=== PATIENT | male | born 1940 | race Caucasian/White ===

== ENCOUNTER 2018-09-02 06:19 | Inpatient (IN) ==
--- NOTE | 2018-08-10 16:10 | PAT Medication Instructions ---
Medication Instructions Date of Service August 10, 2018 Home Medications Caltrate 600 + D 1 tab PO BID aspirin [Aspir-81] 1 tab PO QAM atorvastatin 10 mg PO HS avszo-tk-4-wyl-gnt-sizfcki-ast 1 cap PO QAM metformin 500 mg PO QAM multivitamin 1 tab PO DAILY nitroglycerin [Nitrostat] 1 tab SUBLINGUAL UD PRN hydrochlorothiazide 25 mg PO QAM rosuvastatin 5 mg PO HS STOP taking 2 weeks before surgery (or as soon as possible if surgery is within 2 weeks) neyyt-lb-2-azp-gbq-kzgooha-ast 1 cap PO QAM DO NOT take the morning of surgery Caltrate 600 + D 1 tab PO BID metformin 500 mg PO QAM multivitamin 1 tab PO DAILY hydrochlorothiazide 25 mg PO QAM Take morning of surgery With a small sip of water, OTHERWISE NOTHING TO EAT OR DRINK AFTER MIDNIGHT: aspirin [Aspir-81] 1 tab PO QAM nitroglycerin [Nitrostat] 1 tab SUBLINGUAL UD PRN (if needed) Take evening before surgery Caltrate 600 + D 1 tab PO BID atorvastatin 10 mg PO HS nitroglycerin [Nitrostat] 1 tab SUBLINGUAL UD PRN (if needed) rosuvastatin 5 mg PO HS Other Notes If you have any questions please call us at [phone] or [phone] or [phone] or [phone]
--- NOTE | 2018-08-11 09:23 | Anesthesiology Consultation ---
Date of Service August 11, 2018 Assessment & Plan (1) Encounter for pre-operative examination: CARDIO CLEARANCE (ANNE 08/11): " I did recommend an echocardiogram in anticipation of his surgery just to confirm his LV function is normal. Assuming his LV function is normal and the fact that he could do more than 4 METS easily without any cardiac symptoms before his hip started bothering him, he can proceed with hip surgery at intermediate risk. I believe his risk of cardiac co mp occasions is in the range of 2 to 3%." LV function was NORMAL on echo done 08/13. NOTE SENT TO PCP RE: HYPERKALEMIA. Provider response = " follow up potassium was 4.1, ordered by Dr. Lima [after he discontinued the patient's Losartan], re view by me at medical clearance appointment 08/26/2018. Cleared for surgery." CHECK BSG AM DOS Chart Review Chart Review: Acceptable Risk for Surgery and Patient seen in Pre Admission Testing Consults Requested medical & cardiac Teaching & Discussion Instructed NPO after midnight before surgery, except medications with 15 cc of water. Medication instructions provided according to the PAT guidelines. History Surgery Operation Date: 09/02/18 10:05 Proposed Procedures p Left Total Hip Arthroplasty - Johnson Godoy MD Height/Weight Height: 6 ft 2 in Weight: 103.1 kg Allergies Allergy/AdvReac Type Severity Reaction Status Date / Time No Known Allergies Allergy Unverified 08/06/18 08:37 Medications Home Medications Medication Instructions Recorded Confirmed Last Taken Caltrate 600 + D 1 tab PO BID 11/25/17 08/06/18 08/06/18 aspirin [Aspir-81] 1 tab PO QAM 11/25/17 08/06/18 08/06/18 atorvastatin 10 mg PO HS 11/25/17 08/06/18 08/05/18 nmeix-gs-4-loi-lzi-ojrlufe-ast 1 cap PO QAM 11/25/17 08/06/18 08/06/18 [MegaRed [place]-3 Krill Oil] metformin 500 mg PO QAM 11/25/17 08/06/18 08/06/18 multivitamin 1 tab PO DAILY 11/25/17 08/06/18 12/01/17 nitroglycerin [Nitrostat] 1 tab SUBLINGUAL UD PRN 11/25/17 08/06/18 Unknown hydrochlorothiazide 25 mg PO QAM 08/06/18 08/06/18 08/06/18 rosuvastatin 5 mg PO HS 08/06/18 08/06/18 08/05/18 Past Medical History Medical History CAD (coronary artery disease) S/P CARDIAC CATH WITH ANDREW X 2 TO LAD, 2016. PROMPTED BY + STRESS TEST. Cancer MELANOMA - RT WRIST - REMOVED Diabetes mellitus, type 2 High cholesterol Hypertension Exercise / Class Metabolic Activity II 4-5 Yardwork/Stairs/Walk up hill (Denies CP or SOB with ambulation, and exercises daily.) Past Surgical History Surgical History History of cardiac cath 2 - 2014 /[facility] History of cataract surgery History of colonoscopy History of surgical removal of pilonidal cyst Past Anesthesia History No Hx of Anesthesia Complications and No Family Hx of Anesthesia Complications History of PONV No Hx of PONV and No Hx of Motion Sickness Social History Smoking Status: Never smoker Do You Dip or Chew Tobacco: No Hx Alcohol Use: Yes Alcohol type: hard liquor alcohol intake frequency: a few times a month Hx Substance Use: No substance use type: does not use Review of Systems Pt denies any recent chest pain, shortness of breath, palpitations, cough, fever or URI. Physical Exam Vital Signs BP: 144/76 P: 66bpm SPO2: 95% RA T: 98.4 F R: 12 ENMT Mouth: + dental restorations (few crowns, one implant); no chipped teeth and no loose teeth Thyromental Distance: > or= 3.5 Finger Breadths (4) Mallampati Class: II Neck normal visual inspection; neck extension not limited Respiratory normal respiratory effort Auscultation: lungs clear to auscultation bilaterally Cardiovascular Rate/Rhythm: regular rate and regular rhythm Heart Sounds: no murmur Vessels: no carotid bruit Extremities: no edema Testing Electrocardiogram Date: 08/11/18 Findings: + NSR @ (63) Echocardiogram Date: 08/13/18 EF: 65% Normal LV size and systolic function with no regional wall motion abnormalities. LV septal flattening in systole, consistent with RV pressure overload. No LVH. Grade 2 diastolic dysfunction. Mildly dilated left atrium. Normal RV size and function. Normal right atrium. *based on this echo, sleep study was ordered for further evaluation of possible HUSSAIN. Laboratory Results 08/11/18 09:45 08/11/18 09:45 PT 10.1 Seconds (9.0-12.0) 08/11/18 09:45 INR 1.0 (0.9-1.1) 08/11/18 09:45 APTT 25.9 Seconds (21.0-31.0) 08/11/18 09:45 5.8 % (4.5-5.6) H 08/11/18 09:45 Yellow 08/11/18 09:45 Clear (Clear) 08/11/18 09:45 5.5 (4.5-7.5) 08/11/18 09:45 Ur Specific [place] 1.023 (1.000-1.030) 08/11/18 09:45 Negative (Negative) 08/11/18 09:45 Negative (Negative) 08/11/18 09:45 Negative (Negative) 08/11/18 09:45 Negative (Negative) 08/11/18 09:45 Ur Leukocyte Esterase Negative (Negative) 08/11/18 09:45 Blood Type O Positive 08/11/18 09:45 Antibody Screen NEGATIVE 08/11/18 09:45 08/11/18 09:45 Urine Culture - Final Urine,Clean Catch No growth - less than 1,000 colonies/mL. Due to computer error, some headers from UA and A1C not pulling into table. UA negative for bacteria. A1C = 5.8%
[2018-08-11 10:43] LABS: Basophils # (auto) 0.01 K/uL (0-0.2); Basophils % (auto) 0.2 %; Eosinophils # (auto) 0.08 K/uL (0-0.5); Eosinophils % (auto) 1.4 %; Hematocrit (blood only) 42.1 % (42-52); Immature Granulocytes # (auto) 0.02 K/uL (0.00-0.02); Immature Granulocytes % (auto) 0.4 %; Lymphocytes # (auto) 1.38 K/uL (1.2-3.4); Lymphocytes % (auto) 24.7 %; Mean Corpuscular Hgb Conc 35.6 g/dL (32-36); Mean Corpuscular Volume 92.1 fL (80-100); Mean Platelet Volume 10.8 fL (7.4-10.4); Monocytes # (auto) 0.29 K/uL (0.11-0.59); Monocytes % (auto) 5.2 %; Neutrophils % (auto) 68.1 %; Platelet Count 171 K/uL (130-400); RDW Coefficient of Variation 12.3 % (11.5-14.5); RDW Standard Deviation 41.5 fL (36.4-46.3); Red Blood Count 4.57 M/uL (4.7-6.1); White Blood Count 5.58 K/uL (4.8-10.8)
[2018-08-11 10:48] LABS: Appearance Urine Clear (Clear); Bilirubin Urine Negative (Negative); Blood Urine Negative (Negative); Color Urine Yellow; Glucose Urine UA Negative (Negative); Ketones Urine Negative (Negative); Leukocyte Esterase Urine Negative (Negative); Nitrite Urine Negative (Negative); Protein Urine Negative (Negative); Specific Gravity Urine 1.023 (1.000-1.030); Urobilinogen Urine Negative (Negative); pH Urine 5.5 (4.5-7.5)
[2018-08-11 10:51] LABS: Albumin Level 4.1 gm/dl (3.4-5.0); BUN Creatinine Ratio 32.1 (10-20); Calcium 10.3 mg/dl (8.5-10.1); Creatinine Clr Calc Pharmacy 69.5 ml/min; Est GFR (African American) 71.5; Est GFR (Non-African American) 61.7; Potassium 5.5 mmol/L (3.5-5.1)
[2018-08-11 10:54] LABS: Albumin Globulin Ratio 1.1 (0.9-2); Bilirubin,Total 0.5 mg/dl (0.2-1); Globulin 3.7 gm/dl (2.5-4.0); Total Protein 7.8 gm/dl (6.4-8.2)
[2018-08-11 10:55] LABS: Partial Thromboplastin Time 25.9 Seconds (21.0-31.0); Prothrombin Time 10.1 Seconds (9.0-12.0)
[2018-08-11 11:07] LABS: Estimated Average Glucose 120 mg/dl; Hemoglobin A1C 5.8 % (4.5-5.6)
--- NOTE | 2018-08-11 14:49 | History & Physical Report ---
Date of Service August 11, 2018 Assessment & Plan (1) Unilateral primary osteoarthritis, left hip: DIAGNOSES: Left hip osteoarthritis. PROCEDURE: Left total hip arthroplasty. PLAN: The patient is scheduled to undergo this procedure at the [facility] as an inpatient with Dr. Johnson Godoy on 09/02/2018. Risks and complications of the procedure such as infection, bleeding, pain, scarring, nerve and blood vessel damage, weakness, wound problems, stiffness, incomplete relief of symptoms, hardware failure, hardware loosening, wear, fracture, tendon or ligament injury, dislocation, leg length inequality, blood clots, embolism, heart attack, stroke and were explained to patient by Dr. Swift at his visit today. Informed consent to perform the procedure was obtained. We will also obtain a preoperative medical clearance from the patient's primary care provider, Dr. Kyle Miller as well as his machine packager Dr. Branden Lima. The patient will obtain preoperative testing during today's visit with anesthesia which includes CBC with differential, complete metabolic panel, PT INR, blood type and screen, urinalysis, urine culture, EKG, hemoglobin A1c and a nasal culture for MRSA. The patient was advised that he will be provided with a prescription for a narcotic pain medication for diclofenac sodium to use for pain control after the surgery. He was also educated about the use of Extra Strength Tylenol and increasing his baby aspirin to twice daily after the surgery for DVT prophylaxis. I did provide him with an order for a walker to obtain prior to the procedure. I also instructed him to purchase a hip kit prior to the procedure to have at home. The patient states that he will most likely have some in the home PT with [facility] after the procedure. I provided him with a handicap placard to use for 6 months postoperatively. I ed ucated him about discharge planning, about the lectures digital offered by [facility] in regards to joint replacement. I also advised him that he will need to use antibiotics prophylactically for any dental cleaning or procedures after the surgery. The patient is scheduled for his postoperative followup with myself on September 17 at 1:15 in the afternoon. He states that in regards to physical therapy after the 2-week interval, he will most likely return to [facility] in [place], [place]. The patient and his verbalized understanding of all information provided at today's visit, thanked us for the care he has received and states if they have questions or concerns that should arise prior to the procedure date they will contact the clinic accordingly. History of Present Illness Chief Complaint: CHIEF COMPLAINT: Left hip pain. Primary Care Provider: Kyle Miller MD HISTORY OF PRESENT ILLNESS: This is a 78-year-old male who presents to clinic today with his for his preoperative history and physical. The patient complains of 2-year history of left hip pain that has increased over the past several months. He states that he has been doing directed physical therapy and stretching exercises at [facility]. He states that the hip pain has become so severe that he is unable to use a recumbent bike and feels that it is affecting his activities of daily living. Occasionally, he uses Advil for relief of his pain, but he feels it is ineffective. He states that his gait is slightly antalgic due to the pain in his left hip. PAST SURGICAL HISTORY: Bilateral cataract excision electrodissection and curretage of the left upper back, shave biopsy of skin, cardiac catheterization, laser trabeculoplasty of his left eye, colonoscopy, excision of melanoma from right forearm and right axilla, left eye laser surgery, pilonidal cyst excision, excision of melanoma with sentinel node biopsy. PAST MEDICAL HISTORY: Hypertension, hypercholesterolemia, obesity, rheumatoid arthritis, melanoma, diabetes, basal cell carcinoma, coronary artery disease, glaucoma, tubular adenoma, vitamin D deficiency, actinic keratosis. FAMILY HISTORY: Positive for diabetes insipidus, heart attack, mitral valve disorder and stroke. ALLERGIES: THE PATIENT HAS MEDICATION ALLERGY TO PRESERVATIVES FOUND IN EYEDROPS. CURRENT MEDICATIONS: Aspirin 81 mg tablet daily, Caltrate 600 plus D 1 tab daily, Crestor 5 mg oral tablet 1 tab at bedtime, hydrochlorothiazide 25 mg oral tablet 1 tab daily, metformin 500 mg oral tablet 1 tab daily, nitroglycerin 0.4 mg sublingual tablet 1 tab under tongue every 5 minutes as needed for chest pain up to 3 doses, Ocuvite oral tablet 1 tab daily, omega-3 polyunsaturated fatty acid 500 mg oral capsule 1 cap daily and Refresh eyedrops 1 drop in both eyes twice daily. SOCIAL HISTORY: The patient denies a history of smoking or illicit drug use. States that he consumes 1 alcoholic beverage per month. Allergies Allergy/AdvReac Type Severity Reaction Status Date / Time No Known Allergies Allergy Unverified 08/06/18 08:37 Home Medications Home Medications Medication Instructions Recorded Confirmed Type Caltrate 600 + D 1 tab PO BID 11/25/17 08/06/18 History aspirin [Aspir-81] 1 tab PO QAM 11/25/17 08/06/18 History atorvastatin 10 mg PO HS 11/25/17 08/06/18 History huesh-pf-1-iab-cac-jpitnsr-ast 1 cap PO QAM 11/25/17 08/06/18 History [MegaRed [place]-3 Krill Oil] metformin 500 mg PO QAM 11/25/17 08/06/18 History multivitamin 1 tab PO DAILY 11/25/17 08/06/18 History nitroglycerin [Nitrostat] 1 tab SUBLINGUAL UD PRN 11/25/17 08/06/18 History hydrochlorothiazide 25 mg PO QAM 08/06/18 08/06/18 History rosuvastatin 5 mg PO HS 08/06/18 08/06/18 History Past Med/Surg History Medical History CAD (coronary artery disease) S/P CARDIAC CATH WITH ANDREW X 2 TO LAD, 2015. PROMPTED BY + STRESS TEST. Cancer MELANOMA - RT WRIST - REMOVED Diabetes mellitus, type 2 High cholesterol Hypertension Surgical History History of cardiac cath 2 STENTS - 2014 /[facility] History of cataract surgery History of colonoscopy History of surgical removal of pilonidal cyst Social History Preferred Language: Frisian Communication Ability: Effective Commercial Baker Helper Required: No Beliefs That Will Affect Care: None Current Living Situation: Spouse Other Information That Helps Us Care for You: No Feels Safe at Home: Yes Smoking Status: Never smoker Do You Dip or Chew Tobacco: No Hx Alcohol Use: Yes Alcohol type: hard liquor Hx Substance Use: No Review of Systems All systems reviewed & are unremarkable except as noted in HPI & below Physical Exam Vital Signs (Past 24 Hours): PHYSICAL EXAMINATION: Skin: The patient's skin is normal in appearance. No skin lesions or discharge. Eyes: Pupils are equal and reactive to light and accommodating. Extraocular movements are intact. Throat: Posterior oropharynx clear with absence of edema, erythema or exudate. Cardiovascular exam: The patient has a regular rate and rhythm, no murmurs or gallops appreciated. Lungs: Auscultation of lung avelar reveals clear breath sounds throughout with no wheezing, rales or rhonchi. Abdomen is mildly obese, nondistended, nontender with normoactive bowel sounds. Extremities: Left hip: The patient is able to flex to 100 degrees. Flexion beyond this point exacerbates pain in the left hip. External rotation is limited to 35 degrees, internal rotation to 5 degrees. Impingement and scour tests are both positive. Stinchfield test is equivocal. The patient has tenderness to palpation over the anterior lateral aspect of the hip. There is crepitation with range of motion. There is some referred pain with active abduction and adduction. GABI test is 4 fists. Otherwise, the patient is neurovascularly intact in left lower extremities. Peripheral pulses are palpable. Capillary refill is less than 2 seconds. Calf is soft and supple, nontender to palpation. Neurological exam: Cranial nerves 2-12 are intact. No motor or sensory deficit. Psychological/general exam: The patient is alert and oriented x3 with proper grooming and hygiene. Results & Data Laboratory Results 08/11/18 08/11/18 08/11/18 Range/Units 09:45 09:45 09:45 WBC (4.8-10.8) K/uL RBC (4.7-6.1) M/uL Hgb (14.0-18.0) g/dL Hct (42-52) % MCV (80-100) fL MCH (25-34) pg MCHC (32-36) g/dL RDW Std Deviation (36.4-46.3) fL RDW Coeff of [place] (11.5-14.5) % Plt Count (130-400) K/uL MPV (7.4-10.4) fL Immature Gran % (Auto) % Neut % (Auto) % Lymph % (Auto) % [place] % (Auto) % Eos % (Auto) % Baso % (Auto) % Immature Gran # (Auto) (0.00-0.02) K/uL Neut # (Auto) (1.4-6.5) K/uL Lymph # (Auto) (1.2-3.4) K/uL [place] # (Auto) (0.11-0.59) K/uL Eos # (Auto) (0-0.5) K/uL Baso # (Auto) (0-0.2) K/uL PT (9.0-12.0) Seconds INR (0.9-1.1) APTT (21.0-31.0) Seconds PTT Ratio Sodium 136 (136-145) mmol/L Potassium 5.5 H (3.5-5.1) mmol/L Chloride 100 (98-107) mmol/L Carbon Dioxide 31 (21-32) mmol/L Anion Gap 5.0 (3-11) BUN 37 H (7-18) mg/dl Creatinine 1.14 (0.6-1.4) mg/dl Est Cr Clr Drug Dosing 69.5 ml/min Est GFR ( Amer) 71.5 Est GFR (Non-Af Amer) 61.7 BUN/Creatinine Ratio 32.1 H (10-20) Glucose 129 H (70-99) mg/dl Estimat Average Glucose 120 mg/dl Hemoglobin A1c 5.8 H (4.5-5.6) % Calcium 10.3 H (8.5-10.1) mg/dl Total Bilirubin 0.5 (0.2-1) mg/dl AST 15 (15-37) U/L ALT 29 (12-78) U/L Alkaline Phosphatase 101 (45-117) U/L Total Protein 7.8 (6.4-8.2) gm/dl Albumin 4.1 (3.4-5.0) gm/dl Globulin 3.7 (2.5-4.0) gm/dl Albumin/Globulin Ratio 1.1 (0.9-2) Urine Color Urine Appearance (Clear) Urine pH (4.5-7.5) Ur Specific [place] (1.000-1.030) Urine Protein (Negative) Urine Glucose (UA) (Negative) Urine Ketones (Negative) Urine Blood (Negative) Urine Nitrite (Negative) Urine Bilirubin (Negative) Urine Urobilinogen (Negative) Ur Leukocyte Esterase (Negative) Nasal Screen MRSA (PCR) Negative (Negative) Blood Type Antibody Screen 08/11/18 08/11/18 08/11/18 Range/Units 09:45 09:45 09:45 WBC 5.58 (4.8-10.8) K/uL RBC 4.57 L (4.7-6.1) M/uL Hgb 15.0 (14.0-18.0) g/dL Hct 42.1 (42-52) % MCV 92.1 (80-100) fL MCH 32.8 (25-34) pg MCHC 35.6 (32-36) g/dL RDW Std Deviation 41.5 (36.4-46.3) fL RDW Coeff of [place] 12.3 (11.5-14.5) % Plt Count 171 (130-400) K/uL MPV 10.8 H (7.4-10.4) fL Immature Gran % (Auto) 0.4 % Neut % (Auto) 68.1 % Lymph % (Auto) 24.7 % [place] % (Auto) 5.2 % Eos % (Auto) 1.4 % Baso % (Auto) 0.2 % Immature Gran # (Auto) 0.02 (0.00-0.02) K/uL Neut # (Auto) 3.80 (1.4-6.5) K/uL Lymph # (Auto) 1.38 (1.2-3.4) K/uL [place] # (Auto) 0.29 (0.11-0.59) K/uL Eos # (Auto) 0.08 (0-0.5) K/uL Baso # (Auto) 0.01 (0-0.2) K/uL PT 10.1 (9.0-12.0) Seconds INR 1.0 (0.9-1.1) APTT 25.9 (21.0-31.0) Seconds PTT Ratio 1.0 Sodium (136-145) mmol/L Potassium (3.5-5.1) mmol/L Chloride (98-107) mmol/L Carbon Dioxide (21-32) mmol/L Anion Gap (3-11) BUN (7-18) mg/dl Creatinine (0.6-1.4) mg/dl Est Cr Clr Drug Dosing ml/min Est GFR ( Amer) Est GFR (Non-Af Amer) BUN/Creatinine Ratio (10-20) Glucose (70-99) mg/dl Estimat Average Glucose mg/dl Hemoglobin A1c (4.5-5.6) % Calcium (8.5-10.1) mg/dl Total Bilirubin (0.2-1) mg/dl AST (15-37) U/L ALT (12-78) U/L Alkaline Phosphatase (45-117) U/L Total Protein (6.4-8.2) gm/dl Albumin (3.4-5.0) gm/dl Globulin (2.5-4.0) gm/dl Albumin/Globulin Ratio (0.9-2) Urine Color Urine Appearance (Clear) Urine pH (4.5-7.5) Ur Specific [place] (1.000-1.030) Urine Protein (Negative) Urine Glucose (UA) (Negative) Urine Ketones (Negative) Urine Blood (Negative) Urine Nitrite (Negative) Urine Bilirubin (Negative) Urine Urobilinogen (Negative) Ur Leukocyte Esterase (Negative) Nasal Screen MRSA (PCR) (Negative) Blood Type O Positive Antibody Screen NEGATIVE 08/11/18 Range/Units 09:45 WBC (4.8-10.8) K/uL RBC (4.7-6.1) M/uL Hgb (14.0-18.0) g/dL Hct (42-52) % MCV (80-100) fL MCH (25-34) pg MCHC (32-36) g/dL RDW Std Deviation (36.4-46.3) fL RDW Coeff of [place] (11.5-14.5) % Plt Count (130-400) K/uL MPV (7.4-10.4) fL Immature Gran % (Auto) % Neut % (Auto) % Lymph % (Auto) % [place] % (Auto) % Eos % (Auto) % Baso % (Auto) % Immature Gran # (Auto) (0.00-0.02) K/uL Neut # (Auto) (1.4-6.5) K/uL Lymph # (Auto) (1.2-3.4) K/uL [place] # (Auto) (0.11-0.59) K/uL Eos # (Auto) (0-0.5) K/uL Baso # (Auto) (0-0.2) K/uL PT (9.0-12.0) Seconds INR (0.9-1.1) APTT (21.0-31.0) Seconds PTT Ratio Sodium (136-145) mmol/L Potassium (3.5-5.1) mmol/L Chloride (98-107) mmol/L Carbon Dioxide (21-32) mmol/L Anion Gap (3-11) BUN (7-18) mg/dl Creatinine (0.6-1.4) mg/dl Est Cr Clr Drug Dosing ml/min Est GFR ( Amer) Est GFR (Non-Af Amer) BUN/Creatinine Ratio (10-20) Glucose (70-99) mg/dl Estimat Average Glucose mg/dl Hemoglobin A1c (4.5-5.6) % Calcium (8.5-10.1) mg/dl Total Bilirubin (0.2-1) mg/dl AST (15-37) U/L ALT (12-78) U/L Alkaline Phosphatase (45-117) U/L Total Protein (6.4-8.2) gm/dl Albumin (3.4-5.0) gm/dl Globulin (2.5-4.0) gm/dl Albumin/Globulin Ratio (0.9-2) Urine Color Yellow Urine Appearance Clear (Clear) Urine pH 5.5 (4.5-7.5) Ur Specific [place] 1.023 (1.000-1.030) Urine Protein Negative (Negative) Urine Glucose (UA) Negative (Negative) Urine Ketones Negative (Negative) Urine Blood Negative (Negative) Urine Nitrite Negative (Negative) Urine Bilirubin Negative (Negative) Urine Urobilinogen Negative (Negative) Ur Leukocyte Esterase Negative (Negative) Nasal Screen MRSA (PCR) (Negative) Blood Type Antibody Screen
[~2018-09-02 06:19] MED LIST: ACETAMINOPHEN 500 MG TAB PO SCH; CEFAZOLIN 2000MG 2,000 MG/15 ML SYR IV SCH; CeleBREX 200 MG CAP PO SCH; FAMOTIDINE 20 MG TAB PO SCH; LR 500ML BOLUS, THEN 15ML/HR IV SCH; LR 60ML/HR IV SCH; METOCLOPRAMIDE HCL 10 MG TABLET PO SCH; ROPIVACAINE 0.5% HCL/PF 150 MG, BUPIVACAINE 0.5% MPF 30 ML, EPINEPHrine 0.15 MG, Ketoro... INFIL SCH; SCOPOLAMINE 1.5 MG TDSY TD SCH; TRAMADOL HCL 50 MG TABLET PO SCH; TRANEXAMIC ACID 1,000 MG **IV Pre-op IV SCH
[2018-09-02] MEDS ORDERED: BUPIVACAINE 0.5 % 5 MG/1 ML PF 10ML VIAL ONE (06:29)
[2018-09-02] MEDS ORDERED: TRANEXAMIC ACID 1,000 MG **IV Intra-op TOP SCH (06:30)
[2018-09-02] MEDS ORDERED: TRANEXAMIC ACID 1,000 MG **IV Intra-op IV SCH (06:30)
[2018-09-02] MEDS ORDERED: LIDOCAINE HCL 2% 2 ML VIAL/AMP(20MG/ML) INFIL ONE (07:31)
[2018-09-02] MEDS ORDERED: PROPOFOL IV EMULSION 10 MG/ML 20 ML VIAL IV ONE ×2 (07:31→09:36)
[2018-09-02] MEDS ORDERED: DEXAMETHASONE SOD INJ 4 MG/ML VIAL ONE (07:31)
[2018-09-02] MEDS ORDERED: ONDANSETRON INJ 2 MG/ML 2 ML VIAL ONE (07:31)
[2018-09-02] MEDS ORDERED: GLYCOPYRROLATE 0.2 MG/ML VIAL ONE (07:31)
[2018-09-02] MEDS ORDERED: MIDAZOLAM HCL 1 MG/ML 2ML VIAL ONE (07:31)
[2018-09-02] MEDS ORDERED: KETAMINE HCL INJ 50 MG/ML 10 ML VIAL ONE (07:32)
--- NOTE | 2018-09-02 07:41 | History & Physical Bridge Note ---
Date of Service September 02, 2018 History & Physical Bridge Note I have examined the patient, reviewed the History & Physical and in the interval since the performance of the History & Physical I have noted the following changes of clinical significance: no changes noted
[2018-09-02] MEDS ORDERED: ORTHO JOINT ANESTHETIC ONE (07:55)
[2018-09-02] MEDS ORDERED: POVIDONE-IODINE OP SOLN 30 ML BTL ONE (07:55)
[2018-09-02] MEDS ORDERED: ePHEDrine sulfate 50 MG/ML SYR ONE (09:19)
[2018-09-02] MEDS ORDERED: PHENYLEPHRINE 100MCG/ML 5ML SYR ONE (09:19)
[2018-09-02] MEDS ORDERED: ePHEDrine sulfate 50 MG/ML AMP IV PRN (10:02)
[2018-09-02] MEDS ORDERED: HYDROmorphone INJ 1 MG/ML SYRINGE IV PRN (10:02)
[2018-09-02] MEDS ORDERED: FLUMAZENIL 0.1 MG/1 ML 10 ML VIAL IV PRN (10:02)
[2018-09-02] MEDS ORDERED: ATROPINE SULFATE 0.1 MG/ML 10ML SYR IV PRN (10:02)
[2018-09-02] MEDS ORDERED: NALOXONE HCL 0.4 MG/1 ML VIAL/CARP IV PRN ×2 (10:02→10:03)
[2018-09-02] MEDS ORDERED: ONDANSETRON INJ 2 MG/ML 2 ML VIAL IV PRN ×2 (10:02→10:03)
[2018-09-02] MEDS ORDERED: PROMETHAZINE HCL 12.5 MG in SODIUM CHLORIDE 0.9% 50 ML IV PRN (10:02)
[2018-09-02] MEDS ORDERED: BISACODYL 10 MG SUPP PR PRN (10:03)
[2018-09-02] MEDS ORDERED: METOCLOPRAMIDE HCL INJ 5 MG/ML 2 ML VIAL IV PRN (10:03)
[2018-09-02] MEDS ORDERED: TAMSULOSIN HCL 0.4 MG CAP PO PRN (10:03)
[2018-09-02] MEDS ORDERED: ALUMINUM/MAGNESIUM SUSP 30 ML UDC PO PRN (10:03)
[2018-09-02] MEDS ORDERED: DiphenhydrAMINE HCL 50 MG/ML VIAL IV PRN (10:03)
[2018-09-02] MEDS ORDERED: MAGNESIUM HYDROXIDE SUSP 30 ML UDC PO PRN (10:03)
--- NOTE | 2018-09-02 10:03 | Operative Report ---
Post Operative Report Pre & Post Diagnosis Operation Date: 09/02/18 08:15 Pre-Op Diagnosis: Left Hip Osteoarthritis Post-Op Diagnosis: Left Hip Osteoarthritis Procedure Operation Date: 09/02/18 08:15 Actual Procedures p Left Total Hip Arthroplasty(Left) - Johnson Godoy MD Surgeon Johnson Godoy MD Pension Examiner TAHMINA Guerra PA-C Estimated Blood Loss 100 Findings Consistent with Post-Op Diagnosis Specimens femoral head Anesthesia Type Spinal Complications none Disposition Accompanied Patient To Recovery: Yes Disposition: Recovery Room Description of Procedure I was present during the entire case assisting with wound closure and dressing application. Please see Dr. Godoy procedure note for specifics of the case. I attest to the content of the Intraoperative Record and any orders documented therein. Any exceptions are noted below.
--- NOTE | 2018-09-02 10:04 | Post Operative Brief Note ---
Immediate Post Op Note v1 Date of Surgery September 02, 2018 Pre & Post Diagnosis Operation Date: 09/02/18 08:15 Pre-Op Diagnosis: Left Hip Osteoarthritis Post-Op Diagnosis: Left Hip Osteoarthritis Procedure Operation Date: 09/02/18 08:15 Actual Procedures p Left Total Hip Arthroplasty(Left) - Johnson Godoy MD Surgeon Johnson Godoy MD Gasket Notcher TAHMINA Guerra PA-C Estimated Blood Loss 100 Findings Consistent with Post-Op Diagnosis Fluids 1200 cc Specimens Femoral head Anesthesia Type Spinal Complications none Disposition Accompanied Patient To Recovery: No Disposition: Recovery Room
[2018-09-02] MEDS ORDERED: NITROGLYCERIN SL 0.4 MG/TAB TAB SL PRN (10:07)
--- NOTE | 2018-09-02 10:26 | XRay Report ---
XR hip 1V LT w pelvis CLINICAL HISTORY: Postoperative evaluation. COMPARISON: Pelvis radiograph August 11, 2018. FINDINGS: Alignment of the total left hip arthroplasty is anatomic. No fracture or unexpected radiop aque foreign body. Acetabular screws are placed. IMPRESSION: Expected findings following total left hip arthroplasty. Electronically signed by: Abhishek Boateng M.D. 09/02/2018 10:24 AM
--- NOTE | 2018-09-02 11:32 | Anesthesiology Progress Note ---
Date of Service September 02, 2018 Anesthesia Post Procedure Vital Signs Vital Signs: Temp Pulse Pulse Resp BP Pulse Ox 09/02/18 10:55 37.7 C H 77 15 118/67 100 09/02/18 10:40 74 16 123/71 98 09/02/18 10:30 70 16 114/65 97 09/02/18 10:20 73 12 121/70 97 09/02/18 10:10 77 18 120/67 99 09/02/18 10:01 36.8 C 77 13 112/65 99 09/02/18 06:57 36.7 C 69 18 142/74 H 97 Pain Intensity Left Hip: Pain Intensity: 0 Transfer of Care Handoff Completed per policy Notes Mental Status: alert / awake / arousable Patient Amnestic to Procedure: Yes Nausea / Vomiting: adequately controlled Pain: adequately controlled Airway Patency, RR, SpO2: stable & adequate BP & HR: stable & adequate Hydration State: stable & adequate Neuraxial Anesthesia: was administered and sensory block is resolving Anesthetic Complications: no major complications apparent
--- NOTE | 2018-09-02 12:36 | Operative Report ---
DATE OF OPERATION: 09/02/2018 PREOPERATIVE DIAGNOSIS: Left hip osteoarthritis. POSTOPERATIVE DIAGNOSIS: Left hip osteoarthritis. OPERATION PERFORMED: Left total hip arthroplasty. SURGEON: Johnson Godoy MD HOME HEALTH AID: [facility]. ESTIMATED BLOOD LOSS: 100 mL. IV FLUIDS: 1200 mL crystalloid. SPECIMENS: Femoral head. COMPLICATIONS: None. IMPLANTS: 1. DePuy 64 mm outer diameter Gription sector cup. 2. Two cancellous bone screws, 1 measuring 40 mm, the other measuring 20 mm. 3. DePuy Taiban Ultrex polyethylene liner, neutral for a 36-mm femoral head. 4. DePuy size 7 high offset stem. 5. Biolox delta +8.5 offset 36 mm ceramic femoral head with a 12/14 taper. INDICATIONS: Mr. Figueroa is a pleasant 78-year-old gentleman who has had left hip osteoarthritis that has been refractory to conservative management. X-rays show bone on bone arthritis with extensive osteophyte formation. I had a long discussion with him about the risks and benefits of surgery, alternatives to surgery and expected outcomes. After reviewing all these, he elected to proceed with surgery. All questions were answered. Informed consent was signed. OPERATIVE FINDINGS: The patient had massive femoral head with peripheral osteophyte formation and eburnation of the articular surfaces consistent with degenerative osteoarthritis. A ceramic on polyethylene bearing total hip arthroplasty was performed. DESCRIPTION OF OPERATION: The patient was identified in the preoperative holding area where his surgical site was marked. He was given a spinal anesthetic, then brought back to main operating room where he was placed on the operating room table, moved into the lateral decubitus position, and an axillary roll was placed. All bony prominences were padded. Perioperative antibiotics were administered. He was prepped and draped in the normal sterile fashion. Prior to incision, a multidisciplinary timeout was called. All in the room were in agreement. We began by making a posterior approach to the hip incision length of approximately 14 cm. We dissected down through subcutaneous tissues to the level of the fascia. Fascia was incised in line with the incision. Charnley bow was placed. Trochanteric bursa was excised. The quadratus femoris piriformis and short external rotators were dissected off the posterior aspect of the hip. A box cut was made in the capsule. The femoral head was dislocated. Femoral neck cut was made at 10 mm, which was our preoperative template. The acetabulum was then exposed. The labrum was sharply excised and removed. Contents of the cotyloid fossa removed. We then began reaming with a size 54 reamer. We used this to medialize this acetabulum down to the quadrilateral plate. We then sequentially reamed up all the way to a size 64 at which point we had a healthy cancellous bleeding bone around the entirety of the acetabulum. At this point, the acetabulum was irrigated out with copious amounts of normal saline. The size 64 outer diameter cup was opened up and impacted down into position with 40 degrees of lateral opening and 25 degrees of anteversion. Two cancellous bone screws were then placed, 1 measuring 40 mm, the other measuring 20 mm. Excellent fixation was obtained. At this point, the polyethylene for 36 mm femoral head was impacted. We checked the locking mechanism and ensured that it had engaged. We then removed the posterior inferior and anterior inferior osteophytes using curved osteotome and rongeur. Next, the femoral neck was exposed. The lateral neck was excised with the cookie cutter. We reamed him up to a size 7 after using the lateralizing reamer. We then broached him all the way up to a size 7, which had excellent torsional stability and sat at the level of our femoral neck cut. We then trialed them first with a +1, with a +5 offset head. His shuck test was a little loose and his leg lengths were about a cm too short. Therefore, we upsized him to the +8.5 mm femoral head. This was consistent with our preoperative template. We then relocated the hip and his shuck test was appropriate. His leg lengths were symmetric. We found that he was stable in extension and external rotation. He had approximately 50 degrees of internal rotation with the hip flexed 90 before leaving out of the cup. He was stable in the sleeper position. I was very happy with the stability exam. Therefore, we removed all the trial components. The femoral canal was irrigated and dried. We then opened up the size 7 high offset [place] femoral stem and impacted down into position. It sat at the same level as the broach. Therefore, we opened up the +8.5 mm ceramic femoral head 36 mm diameter. This was gently impacted onto the trunnion. The hip was then atraumatically reduced. We then began to close. The wound was irrigated with a dilute Betadine solution and allowed to sit for 2 minutes. We then injected the periarticular pain cocktail. Once this was complete, the piriformis, short external rotators and capsule were repaired through bone tunnels in the posterior aspect of the greater trochanter using #2 Vicryl sutures. Tranexamic acid was placed into the wound and was allowed to sit while we closed the fascia. Fascia was closed with a running looped #1 PDS. The tranexamic acid was then removed prior to complete fascial closure. The subcutaneous layer was closed with #1 PDS. The deep dermis was closed with running 2-0 Vicryl. Zipline was used for the skin. A Silverlon dressing was placed. The patient was placed into an abduction pillow. He was rolled supine and transferred to the recovery room in stable condition. POSTOPERATIVE COURSE: The patient will be admitted to the floor after surgery. He will be on aspirin for DVT prophylaxis. Follow posterior hip precautions. We will plan on discharging him home tomorrow. He will receive perioperative antibiotics. I attest to the content of the Intraoperative Record and any orders documented therein. Any exception s are noted below.
[2018-09-02] MEDS: KETOROLAC TROMETHAMINE 15 MG/ML VIAL IV SCH ×3 (13:17→23:33)
[2018-09-02] MEDS: SODIUM CHLORIDE 0.9% 1000ML 1,000 ML IV SCH (13:20)
[2018-09-02] MEDS ORDERED: CHECK SCOPOLAMINE PATCH PLACEMENT SCH (16:00)
[2018-09-02] MEDS: CEFAZOLIN 2000MG 2,000 MG/15 ML SYR IV SCH ×2 (16:22→23:32)
[2018-09-02] MEDS: CALCIUM 600MG + VIT D 400 IU TAB PO SCH (16:22)
[2018-09-02] MEDS: OXYCODONE HCL IR 5 MG TAB (IMMEDIATE RELEASE) PO PRN (16:25)
[2018-09-02] MEDS: DOCUSATE SODIUM 100 MG CAP PO SCH (20:45)
[2018-09-02] MEDS: ASPIRIN 81 MG ECTAB PO SCH (20:45)
[2018-09-02] MEDS: ACETAMINOPHEN 500 MG TAB PO SCH (20:45)
[2018-09-02] MEDS ORDERED: SENNA 8.6 MG TAB PO SCH (21:00)
[2018-09-02] MEDS ORDERED: ROSUVASTATIN CALCIUM 5 MG TAB PO SCH (21:00)
[2018-09-02] MEDS ORDERED: ATORVASTATIN 10 MG TAB PO SCH (21:00)
[2018-09-03] MEDS: SODIUM CHLORIDE 0.9% 1000ML 1,000 ML IV SCH (01:13)
[2018-09-03 05:58] LABS: Eosinophils # (auto) 0.03 K/uL (0-0.5); Eosinophils % (auto) 0.3 %; Hematocrit (blood only) 33.1 % (42-52); Hemoglobin 12.1 g/dL (14.0-18.0); Immature Granulocytes # (auto) 0.01 K/uL (0.00-0.02); Immature Granulocytes % (auto) 0.1 %; Lymphocytes # (auto) 1.13 K/uL (1.2-3.4); Lymphocytes % (auto) 12.9 %; Mean Corpuscular Hgb Conc 36.6 g/dL (32-36); Mean Corpuscular Volume 90.2 fL (80-100); Mean Platelet Volume 9.7 fL (7.4-10.4); Monocytes # (auto) 0.91 K/uL (0.11-0.59); Monocytes % (auto) 10.4 %; Neutrophils # (auto) 6.68 K/uL (1.4-6.5); Neutrophils % (auto) 76.3 %; Platelet Count 137 K/uL (130-400); RDW Coefficient of Variation 11.6 % (11.5-14.5); RDW Standard Deviation 38.1 fL (36.4-46.3); Red Blood Count 3.67 M/uL (4.7-6.1); White Blood Count 8.76 K/uL (4.8-10.8)
[2018-09-03] MEDS: KETOROLAC TROMETHAMINE 15 MG/ML VIAL IV SCH (06:12)
[2018-09-03] MEDS: ACETAMINOPHEN 500 MG TAB PO SCH (06:12)
[2018-09-03 06:26] LABS: BUN Creatinine Ratio 23.7 (10-20); Calcium 8.7 mg/dl (8.5-10.1); Creatinine Clr Calc Pharmacy 55.6 ml/min; Est GFR (African American) 55.3; Est GFR (Non-African American) 47.7; Potassium 5.3 mmol/L (3.5-5.1)
[2018-09-03] MEDS ORDERED: METFORMIN HCL 500 MG TAB PO SCH (07:30)
[2018-09-03] MEDS: OXYCODONE HCL IR 5 MG TAB (IMMEDIATE RELEASE) PO PRN (07:36)
--- NOTE | 2018-09-03 07:49 | Anesthesiology Progress Note ---
Date of Service September 03, 2018 Anesthesia Post Procedure Vital Signs Vital Signs: Temp Pulse Pulse Resp BP Pulse Ox 09/03/18 07:04 36.5 C 57 L 18 137/76 99 09/03/18 03:49 36.4 C L 59 L 18 134/74 96 09/02/18 23:07 36.4 C L 59 L 18 123/70 97 09/02/18 20:26 36.4 C L 66 17 149/76 H 99 09/02/18 14:16 77 17 127/70 09/02/18 13:10 76 16 146/79 H 96 09/02/18 12:10 36.4 C L 68 18 109/66 97 09/02/18 11:50 64 16 137/80 99 09/02/18 11:10 36.4 C L 72 16 146/89 H 99 09/02/18 10:55 37.7 C H 77 15 118/67 100 09/02/18 10:40 74 16 123/71 98 09/02/18 10:30 70 16 114/65 97 09/02/18 10:20 73 12 121/70 97 09/02/18 10:10 77 18 120/67 99 09/02/18 10:01 36.8 C 77 13 112/65 99 Pain Intensity Left Hip: Pain Intensity: 2 Notes Mental Status: alert / awake / arousable and participated in evaluation Patient Amnestic to Procedure: Yes Nausea / Vomiting: adequately controlled Pain: adequately controlled Airway Patency, RR, SpO2: stable & adequate BP & HR: stable & adequate Hydration State: stable & adequate Neuraxial Anesthesia: was administered and sensory block resolved Anesthetic Complications: no major complications apparent and Pt Satisfied with anesthetic care
[2018-09-03] MEDS: DOCUSATE SODIUM 100 MG CAP PO SCH (08:59)
[2018-09-03] MEDS: ASPIRIN 81 MG ECTAB PO SCH (08:59)
[2018-09-03] MEDS: CALCIUM 600MG + VIT D 400 IU TAB PO SCH (08:59)
[2018-09-03] MEDS ORDERED: MULTIVITAMIN TAB PO SCH ×2 (09:00)
[2018-09-03] MEDS ORDERED: OMEGA-3 (PURIFIED FISH OIL) 1 GM CAP PO SCH (09:00)
[2018-09-03] MEDS ORDERED: ASPIRIN 81 MG ECTAB PO SCH (09:00)
[2018-09-03] MEDS ORDERED: hydroCHLOROthiazide 25 MG TAB PO SCH (09:00)
--- NOTE | 2018-09-03 10:53 | Orthopedic Progress Note ---
Date of Service September 03, 2018 Assessment & Plan (1) Status post total hip replacement, left: Discharge home with health services for PT Total hip precautions Aspirin and TEDs for DVT prophy Ice with EZ wrap WBAT with walker assistance Abduction pillow use for 6 wks post-op Pain control with PO meds F/u at [facility] as previously scheduled Supervising Physician Co-Signing Physician Notes I saw and examined patient. Agree with note. Subjective 78 yo M day 1 s/p Left total hip arthroplasty. Doing extremely well. No complaints of hip pain, CP, SOB, nausea, vomiting, fever, chills, sweats or weakness. Did well with PT/OT. Ready to be discharged home. Review of Systems Review of Systems: All systems reviewed & are unremarkable except as noted in HPI & below Physical Exam Physical Exam: Left hip: dressing has small amount of blood but otherwise dry and intact. Able to easily perform SLRT. No pain with light internal or external rotation. Able to depict light sensation to touch circumfrentially around dressing. Calf soft and supple. NV intact. Results & Data Vital Signs (Past 12 Hours) Vital Signs Temp Pulse Resp BP Pulse Ox 09/03/18 10:45 36.5 C 57 L 18 135/70 98 09/03/18 09:01 126/68 09/03/18 07:04 36.5 C 57 L 18 137/76 99 09/03/18 03:49 36.4 C L 59 L 18 134/74 96 09/02/18 23:07 36.4 C L 59 L 18 123/70 97 Laboratory Results 09/03/18 09/03/18 09/02/18 Range/Units 05:44 05:44 12:20 WBC 8.76 (4.8-10.8) K/uL RBC 3.67 L (4.7-6.1) M/uL Hgb 12.1 L (14.0-18.0) g/dL Hct 33.1 L (42-52) % MCV 90.2 (80-100) fL MCH 33.0 (25-34) pg MCHC 36.6 H (32-36) g/dL RDW Std Deviation 38.1 (36.4-46.3) fL RDW Coeff of [place] 11.6 (11.5-14.5) % Plt Count 137 (130-400) K/uL MPV 9.7 (7.4-10.4) fL Immature Gran % (Auto) 0.1 % Neut % (Auto) 76.3 % Lymph % (Auto) 12.9 % [place] % (Auto) 10.4 % Eos % (Auto) 0.3 % Baso % (Auto) 0.0 % Immature Gran # (Auto) 0.01 (0.00-0.02) K/uL Neut # (Auto) 6.68 H (1.4-6.5) K/uL Lymph # (Auto) 1.13 L (1.2-3.4) K/uL [place] # (Auto) 0.91 H (0.11-0.59) K/uL Eos # (Auto) 0.03 (0-0.5) K/uL Baso # (Auto) 0.00 (0-0.2) K/uL Sodium 128 L (136-145) mmol/L Potassium 5.3 H (3.5-5.1) mmol/L Chloride 97 L (98-107) mmol/L Carbon Dioxide 30 (21-32) mmol/L Anion Gap 1.0 L (3-11) BUN 33 H (7-18) mg/dl Creatinine 1.41 H (0.6-1.4) mg/dl Est Cr Clr Drug Dosing 55.6 ml/min Est GFR ( Amer) 55.3 Est GFR (Non-Af Amer) 47.7 BUN/Creatinine Ratio 23.7 H (10-20) Glucose 117 H (70-99) mg/dl POC Glucose 129 H (70-99) Calcium 8.7 (8.5-10.1) mg/dl
--- NOTE | 2018-09-03 12:01 | Discharge Summary ---
Date of Service September 03, 2018 Admission HPI Per Admitting Provider HISTORY OF PRESENT ILLNESS: This is a 78-year-old male who presents to clinic today with his for his preoperative history and physical. The patient complains of 2-year history of left hip pain that has increased over the past several months. He states that he has been doing directed physical therapy and stretching exercises at [facility]. He states that the hip pain has become so severe that he is unable to use a recumbent bike and feels that it is affecting his activities of daily living. Occasionally, he uses Advil for relief of his pain, but he feels it is ineffective. He states that his gait is slightly antalgic due to the pain in his left hip. PAST SURGICAL HISTORY: Bilateral cataract excision electrodissection and curretage of the left upper back, shave biopsy of skin, cardiac catheterization, laser trabeculoplasty of his left eye, colonoscopy, excision of melanoma from right forearm and right axilla, left eye laser surgery, pilonidal cyst excision, excision of melanoma with sentinel node biopsy. PAST MEDICAL HISTORY: Hypertension, hypercholesterolemia, obesity, rheumatoid arthritis, melanoma, diabetes, basal cell carcinoma, coronary artery disease, glaucoma, tubular adenoma, vitamin D deficiency, actinic keratosis. FAMILY HISTORY: Positive for diabetes insipidus, heart attack, mitral valve disorder and stroke. ALLERGIES: THE PATIENT HAS MEDICATION ALLERGY TO PRESERVATIVES FOUND IN EYEDROPS. CURRENT MEDICATIONS: Aspirin 81 mg tablet daily, Caltrate 600 plus D 1 tab daily, Crestor 5 mg oral tablet 1 tab at bedtime, hydrochlorothiazide 25 mg oral tablet 1 tab daily, metformin 500 mg oral tablet 1 tab daily, nitroglycerin 0.4 mg sublingual tablet 1 tab under tongue every 5 minutes as needed for chest pain up to 3 doses, Ocuvite oral tablet 1 tab daily, omega-3 polyunsaturated fatty acid 500 mg oral capsule 1 cap daily and Refresh eyedrops 1 drop in both eyes twice daily. SOCIAL HISTORY: The patient denies a history of smoking or illicit drug use. States that he consumes 1 alcoholic beverage per month. Admission Exam Per Admitting Provider PHYSICAL EXAMINATION: Skin: The patient's skin is normal in appearance. No skin lesions or discharge. Eyes: Pupils are equal and reactive to light and accommodating. Extraocular movements are intact. Throat: Posterior oropharynx clear with absence of edema, erythema or exudate. Cardiovascular exam: The patient has a regular rate and rhythm, no murmurs or gallops appreciated. Lungs: Auscultation of lung avelar reveals clear breath sounds throughout with no wheezing, rales or rhonchi. Abdomen is mildly obese, nondistended, nontender with normoactive bowel sounds. Extremities: Left hip: The patient is able to flex to 100 degrees. Flexion beyond this point exacerbates pain in the left hip. External rotation is limited to 35 degrees, internal rotation to 5 degrees. Impingement and scour tests are both positive. Stinchfield test is equivocal. The patient has tenderness to palpation over the anterior lateral aspect of the hip. There is crepitation with range of motion. There is some referred pain with active abduction and adduction. GABI test is 4 fists. Otherwise, the patient is neurovascularly intact in left lower extremities. Peripheral pulses are palpable. Capillary refill is less than 2 seconds. Calf is soft and supple, nontender to palpation. Neurological exam: Cranial nerves 2-12 are intact. No motor or sensory deficit. Psychological/general exam: The patient is alert and oriented x3 with proper grooming and hygiene. Principal Diagnosis Left hip osteoarthritis Discharge Exam Left hip: dressing has small amount of blood but otherwise dry and intact. Able to easily perform SLRT. No pain with light internal or external rotation. Able to depict light sensation to touch circumfrentially around dressing. Calf soft and supple. NV intact. Discharge Data Allergies Allergy/AdvReac Type Severity Reaction Status Date / Time No Known Allergies Allergy Verified 09/02/18 06:52 Consultations 09/03/18 08:00 Consult Case Management - Discharge Planning Routine Procedures Performed Operation Date: 09/02/18 08:15 Actual Procedures p Left Total Hip Arthroplasty(Left) - Johnson Godoy MD Ordered Studies 09/03/18 09/03/18 09/02/18 Range/Units 05:44 05:44 12:20 WBC 8.76 (4.8-10.8) K/uL RBC 3.67 L (4.7-6.1) M/uL Hgb 12.1 L (14.0-18.0) g/dL Hct 33.1 L (42-52) % MCV 90.2 (80-100) fL MCH 33.0 (25-34) pg MCHC 36.6 H (32-36) g/dL RDW Std Deviation 38.1 (36.4-46.3) fL RDW Coeff of [place] 11.6 (11.5-14.5) % Plt Count 137 (130-400) K/uL MPV 9.7 (7.4-10.4) fL Immature Gran % (Auto) 0.1 % Neut % (Auto) 76.3 % Lymph % (Auto) 12.9 % Forrest % (Auto) 10.4 % Eos % (Auto) 0.3 % Baso % (Auto) 0.0 % Immature Gran # (Auto) 0.01 (0.00-0.02) K/uL Neut # (Auto) 6.68 H (1.4-6.5) K/uL Lymph # (Auto) 1.13 L (1.2-3.4) K/uL Forrest # (Auto) 0.91 H (0.11-0.59) K/uL Eos # (Auto) 0.03 (0-0.5) K/uL Baso # (Auto) 0.00 (0-0.2) K/uL Sodium 128 L (136-145) mmol/L Potassium 5.3 H (3.5-5.1) mmol/L Chloride 97 L (98-107) mmol/L Carbon Dioxide 30 (21-32) mmol/L Anion Gap 1.0 L (3-11) BUN 33 H (7-18) mg/dl Creatinine 1.41 H (0.6-1.4) mg/dl Est Cr Clr Drug Dosing 55.6 ml/min Est GFR ( Amer) 55.3 Est GFR (Non-Af Amer) 47.7 BUN/Creatinine Ratio 23.7 H (10-20) Glucose 117 H (70-99) mg/dl POC Glucose 129 H (70-99) Calcium 8.7 (8.5-10.1) mg/dl Hospital Course (1) Status post total hip replacement, left: Patient had uneventful over night stay. Did well in PT/OT and is ready to go home. Discharge home with health services for PT Total hip precautions Aspirin and TEDs for DVT prophy Ice with EZ wrap WBAT with walker assistance Abduction pillow use for 6 wks post-op Pain control with PO meds F/u at [facility] as previously scheduled Total Time Total Time Spent Total Time Spent (In Minutes): 25 Total Time Includes: Examination of the Patient, Discharge Planning and Medication Reconciliation Discharge Plan Discharge Items Patient Disposition: Home - Home Health Services Reason For Visit: Left Hip Osteoarthritis Discharge Diagnosis: Left Hip Osteoarthritis Discharge Goals: Decrease discomfort, Improve function and Increase independence Activity: As commented below Lifting: None Bathing: Keep incision dry Bathing Comment: May shower tomorrow Sexual Activity: Wait until after follow-up appointment Exercise/Sports: Wait until after follow-up appointment Driving/Machine Use Comment: No driving until cleared by operating room specialist Weightbearing Comment: as tolerated with walker assistance Non-emergency contact: Primary Care Provider Call non-emergency contact if: you have any medication questions, your pain is not controlled, your temperature is above 101.5, your wound has increased drainage and your wound pain has increased Follow-up/Referrals: Kyle Miller MD [Primary Care Provider] - Diet: Regular Addtl Provider Instructions: Post-operative Instructions Dear Patient and Family/Friends, Before you are discharged from the hospital, it is important to know what to expect when you get home after surgery. To that end, we have created this sheet of discharge instructions which covers many commonly asked questions. Make sure you go through this sheet in its entirety with your nurse before you are discharged. Please note that we will go over the specifics of your surgery and recovery when you return for your first post-operative visit. Sincerely, Dr. Godoy Medications You will be discharged on an opoid pain medication (Oxycodone 5mg) that may be taken 1-2 tabs by mouth every 4-6 hrs as needed for pain. 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 This medicine is for pain control and inflammation relief. You should take 1 tab after breakfast and one after dinner for 30 days post operatively. I recommend that you purchase over the counter extra strength Tylenol to be taken with every other dose of the Oxycodone. Once the Oxy is finished you should take the Tylenol every 6-8 hours as needed for pain relief for up to 30 days post operatively. Also increase your daily Aspirin 81 mg to twice daily for 30 days post op. If you have any questions be sure to contact the clinic. The # . Pain Expect to be in a fair amount of pain after surgery. Remember, our goal is not to eliminate your pain, but to make it tolerable. It is a good idea to stay ahead of your pain by taking the medications you were prescribed once you get home. Typically, the pain starts improving 3-7 days after surgery. You should start weaning off the narcotic pain medication (oxycodone, hydrocodone, hydromorphone, morphine) as soon as your pain improves. Please call our office if your pain is not adequately controlled. Ice Ice your operative site at least 5 times a day for 15-30 minutes at a time. Make sure you have a thin cloth between the ice or cooling unit and your skin to prevent lópez bite. This is especially important if you received a nerve block. Continue icing your operative site for the first 5-7 days after surgery, then as needed. Diet/Nausea/Vomiting Start by drinking clear liquids and eating crackers. If you can tolerate this, then you may resume your normal diet. If you feel nauseated or vomit, take Zofran/ondansetron (if prescribed). Please call our office if you have intractable nausea or vomiting, or, if after hours, you may go to the Emergency Room for help. Constipation Constipation is a common side effect of narcotic pain medication. If you have not had a bowel movement within 2 days after surgery, we recommend purchasing an over the counter laxative such as Milk of Magnesia, Dulcolax, or Miralax from a local pharmacy, and taking it as instructed. Call our clinic if any questions. Nerve block The anesthesia team sometimes places a nerve block to help with post-operative pain control. This results in significant numbness and inability to move the extremity. The nerve block usually wears off in 8-12 hours, but sometimes can last up to 24 hours. Please call our office if you are still unable to move your extremity after 24 hours, unless you received a pain pump to take home. Nerve blocks typically wear off quickly, so start taking pain medication as soon as you start feeling soreness near your surgical site. Weight bearing and Range of Motion. Do not bear any weight through your operative extremity immediately after surgery. If you had upper extremity surgery, do not lift anything with that arm. If you are in a knee brace, keep it locked in place until your follow-up. We will discuss your weight bearing, range of motion, and lifting restrictions in detail at your first post-operative appointment. Continuous Passive Motion (CPM) Machine If you were prescribed a CPM machine, it will start after your first post- operative appointment, at which time we will give you instructions on the range of motion settings and duration of treatment Physical therapy You will be given a prescription for physical therapy or occupational therapy at your first post-operative appointment. Typically, patients start therapy within 1 week of surgery Wound care and showering We will inspect your wound at your first post-operative visit, and may do a dressing change at that time. Most patients will be in a water-proof dressing that is removed 14 days after surgery. It is normal to see some dried blood on the dressing. Do not remove your dressing, paper strips or sutures yourself unless you are given permission. Showering is allowed the day after surgery. Do not scrub or remove any dressings. The wound should not be submerged underwater (i.e. in a bathtub or pool) until 4 weeks after surgery BENNIE stockings If you were given white stockings, these are to be worn at all times except to shower (on both legs) for the first 2 weeks after surgery. Driving You may not drive while taking narcotic pain medication or while in a cast, splint, sling or brace. You, the patient, need to make the final determination about when you are safe to drive, however, the earliest you may consider driving after surgery is below: Hand/Wrist/Elbow Surgery: 3 days Shoulder Surgery: 2 weeks Hip,/Knee/Ankle Surgery: 4 weeks Fracture repair: 6 weeks Return to Work Your return to work depends on what surgery was done and what type of work you do. Please bring any paperwork your employer needs completed to your first post-operative visit. Also, bring a description of your job duties, as this helps us to understand what risks you may face at work. Travel Avoid long distance travel (greater than 1 hour) in airplanes and cars for the first 6 weeks after surgery. If you must travel, you need to have a Doppler ultrasound done before you travel to rule out a blood clot in your legs. Follow-up You should have a follow-up appointment already scheduled 1-2 days after surgery. If not, please contact our office to make this appointment before you leave the hospital. When to call the office It is normal to have swelling and bruising in the limb that was operated on. This will improve with time. It is also normal to have fevers for the first 2 days after surgery. Reasons you should call your doctor include: Uncontrolled pain; Nausea, vomiting, or constipation that does not improve with medication; Fevers over 101.5, chills, sweats; Drainage or bleeding from the wound; Foul odor; Spreading areas of redness; Any other concerns Prescriptions: New diclofenac sodium 75 mg tablet,delayed release (DR/EC) 75 mg PO BID 30 Days Qty: 60 RF: 1 oxycodone 5 mg tablet 5 mg PO .q4-6 hr MDD May use 1-2 tabs PRN (Reason: pain) Qty: 30 RF: 0 Continued metformin 500 mg Tablet 500 mg PO QAM RF: 0 multivitamin Tablet 1 tab PO DAILY RF: 0 atorvastatin 10 mg Tablet 10 mg PO HS RF: 0 nitroglycerin [Nitrostat] 0.4 mg Tablet, Sublingual 1 tab Sublingual UD PRN (Reason: Chest Pain) RF: 0 Caltrate 600 + D 600 mg (1,500 mg)-800 unit Tablet,Chewable 1 tab PO BID RF: 0 [id number] [MegaRed [place]-3 Krill Oil] 1,000-230-60 mg Capsule 1 cap PO QAM RF: 0 hydrochlorothiazide 25 mg Tablet 25 mg PO QAM RF: 0 rosuvastatin 5 mg Tablet 5 mg PO HS RF: 0 Changed aspirin [Aspir-81] 81 mg Tablet,Delayed Release (Dr/Ec) 1 tab PO BID 30 Days Qty: 0 RF: 0 Stand-Alone Forms: [employer] [facility] [employer], [facility]/Other Patient Handouts: Surgery Prevent DVT After Discharge Orders: Discharge Order (Routine); Ordered 09/03/18 Ordered By: Yaya Guerra Admission Data Admit Date/Time: 09/02/18 10:03 Attending Provider: Johnson Godoy Admit Provider: Johnson Godoy Primary Care Provider: Kyle Miller Service: Surgical Services Other Interventions: Discharge Summary Assessment (RN) Last Done: 09/03/18 10:51 Pending Studies at Discharge: No
[2018-09-03] MEDS ORDERED: CeleBREX 200 MG CAP PO SCH (21:00)
== END 2018-09-03 12:10 | disposition home or self-care (01) | DRG 470 ==
LOC: PAT 06:19 → 3E 10:03